=== PATIENT | female | born 1960 | race Caucasian/White ===

== ENCOUNTER → 2016-08-15 | Outpatient (CLI) | payer BC ==
[~2016-08-15] MED LIST: ADVIN25/60 INH; ASPI81TA28 PO; ATOR-26 PO; CETI10TA84 PO; CHOL20007 PO; COEN1CAP28 PO; EPP3/2 IM; GABA1CAP PO; INSDGI SC; INSU100I2 SC; IPRA1AER2 INH; LISI-461 PO; METF-384 PO; MOME50SP5; OMEG10007 PO; PANT40TA PO; SERT-234 PO; XNX25 PO; ZOLP10TA PO
--- NOTE | 2016-08-15 14:39 | DIAGNOSTIC IMAGING REPORT ---
CHEST 2 VIEWS ROUTINE CLINICAL HISTORY: ASTHMA EXACERBATION/SOB COMPARISON STUDY: No previous studies for comparison. FINDINGS: The bones soft tissues and hemidiaphragms are normal. The cardiomediastinal silhouette is normal. The lungs are clear. The pulmonary vasculature is normal. IMPRESSION: Negative chest. Electronically signed by: Kd Sawyer M.D. 08/15/2016 2:37 PM Dictated Date/Time: 08/15/2016 2:37 PM
== END | disposition home or self-care (01) ==
LOC: C.RADPV 14:16
PROVIDERS: ATTEND Nurse Practitioner
DX: J45.901 Unspecified asthma with (acute) exacerbation (principal); R06.02 Shortness of breath

== ENCOUNTER → 2016-09-02 | Outpatient (CLI) | payer BC ==
[~2016-09-02] MED LIST changes: +GADAVIST IV PRN
--- NOTE | 2016-09-02 11:00 | DIAGNOSTIC IMAGING REPORT ---
MRI OF THE BRAIN COMBO CLINICAL HISTORY: Headache. Forgetfulness. COMPARISON STUDY: MRI of the brain dated 10/30/2010. TECHNIQUE: MRI of the brain was performed utilizing various T1 and T2-weighted sequences in the axial, sagittal, and coronal planes. Contrast-enhanced sequences were acquired following the administration of 7 cc of Gadavist. The examination is significantly degraded by open MRI technique. FINDINGS: Brain parenchyma: There is mild subcortical and periventricular microangiopathic disease. There is no hemorrhage or mass effect. There is no restricted diffusion to suggest acute ischemia. No enhancing mass lesion is identified on the postcontrast images. Mojica-white matter differentiation is preserved. No extra-axial fluid collection is seen. The cerebellar tonsils are normal in configuration. Ventricles, sulci, and cisterns: Normal in configuration. Pituitary and sella: Unremarkable. Intracranial vasculature: Normal flow voids are maintained at the skull base. Orbits: The bony orbits are grossly intact. Orbital contents are normal in appearance. Sinuses and mastoids: There is evidence of previous paranasal sinus surgery. There is moderate mucosal thickening in the left maxillary antrum. Mild mucosal thickening is seen within the right maxillary antrum and the sphenoid sinuses. The mastoid air cells are clear. Calvarium: Unremarkable. Cervical cord: Partially visualized cervical spinal cord is normal in morphology and signal intensity. IMPRESSION: No acute intracranial abnormality. Electronically signed by: Arjun Walker M.D. 09/02/2016 10:58 AM Dictated Date/Time: 09/02/2016 10:55 AM
== END | disposition home or self-care (01) ==
LOC: C.OPENMRI 09:47
PROVIDERS: ATTEND Psychiatry & Neurology Neurology
DX: Z86.73 Personal history of transient ischemic attack (TIA), and cerebral infarction without residual deficits (principal)

== ENCOUNTER 2017-05-05 09:27 | Emergency (ER) | payer BC ==
[~2017-05-05] VITALS: Ht 162.6 cm; Wt 79.7 kg
[~2017-05-05 09:27] MED LIST changes: -GADAVIST IV PRN
[2017-05-05 09:34] VITALS: TEMP 36.8; Ht 162.6 cm; Wt 79.7 kg
[2017-05-05] MEDS ORDERED: MOME6000 (10:08)
[2017-05-05] MEDS ORDERED: DEXAMETHASONE SOD INJ 4 MG/ML 5 ML VIAL IM STA (11:44)
[2017-05-05] MEDS ORDERED: KETOROLAC TROMETHAMINE 60 MG/2 ML VIAL IM STA (11:44)
[2017-05-05] MEDS ORDERED: MoRPHine SULFATE 10 MG/ML CARP/VIAL IM STA (11:44)
[2017-05-05] MEDS ORDERED: DEXAMETHASONE SOD INJ 10 MG/ML VIAL IM STA ×2 (11:50→11:58)
[2017-05-05] MEDS ORDERED: ONDANSETRON 4MG OD TAB PO ONE (12:15)
--- NOTE | 2017-05-05 12:32 | DIAGNOSTIC IMAGING REPORT ---
C-SPINE ROUTINE 4 OR 5 VIEWS CLINICAL HISTORY: RIGHT CERVICAL RADICULOPATHY COMPARISON STUDY: February 2008 FINDINGS: No fractures or traumatic subluxations are visualized on conventional radiographic imaging. There are degenerative changes most pronounced at the C4-5 level. There is minor bilateral foraminal narrowing due to uncinate spurring. No destructive lesions are visualized IMPRESSION: 1. No acute fractures or traumatic subluxations 2. Degenerative changes most pronounced at the C4-5 level. Electronically signed by: Simeon Anand M.D. 05/05/2017 12:31 PM Dictated Date/Time: 05/05/2017 12:29 PM
[2017-05-05 12:37] VITALS: BP 166/88; PULSE 94; O2SAT 96
[2017-05-05] MEDS ORDERED: OXYC1TAB3 PO (13:27)
[2017-05-05] MEDS ORDERED: METH4PAK PO (13:27)
--- NOTE | 2017-05-05 13:28 | EMERGENCY ROOM VISIT NOTE ---
ED Visit Note First contact with patient: 10:43 CHIEF COMPLAINT: Worsening neck and right shoulder pain x 2-3 weeks. HPI : Patient is a [id number] 57-year-old white female who presents the emergency department for evaluation of right neck and shoulder pain. Patient has had pain similar to this previously, she had been evaluated for it some time ago, noting that she had an MRI many years ago, and had been in physical therapy at one point but only went for a few sessions. She states that the pain is generally manageable, she states is usually alleviated with aoan-vdx-mirwzcp medications area last couple of days, however the pain has worsened. She notes a burning pain in the musculature of the right side of her neck that radiates down into the top of the right shoulder, and right shoulder blade. Pain is worse with movement and palpation. She states the pain does not radiate significantly down the arm, she denies any elbow pain, no numbness, tingling or weakness into her hand or fingers. She had left over Vicodin, which she took which helped initially, but subsequently has not given her any relief. She has had pain like this before and reports that prednisone has helped. She states that she has not been able to sleep for the last couple of days due to her pain. She is not aware of any injury to the area. No recent heavy exertion or unusual activity that he knows that may have started the pain. She denies any anterior chest pain, palpitations or shortness of breath. REVIEW OF SYSTEMS: Review of systems as per HPI. All other systems reviewed were negative. 10 systems reviewed. PMH: Electronic medical records are reviewed and summarized as above/below. See Problem List. SOCIAL HISTORY: Patient lives at home with her family. Employed. Smoker. PHYSICAL EXAM: Vital Signs: Reviewed Nurse's notes. MENTAL STATUS: Patient is an uncomfortable, slightly anxious-appearing 57-year- old white female who is awake and alert and didn't well distress due to her neck pain. HEENT: Normocephalic, atraumatic. Pupils equal, round, reactive to light and accommodation. EOMs intact without nystagmus. Sclera are anicteric. Tympanic membranes intact, with normal landmarks. External canals are clear. Oral and nasopharynx are clear. Mucous membranes are moist. C-SPINE: There is no tenderness or step-off deformity over the spinous processes of the cervical or upper thoracic spine. She has marked reproducible right paraspinous muscle tenderness, extending into the right trapezius and right rhomboid region. She does have a few localized spasms noted. She has full C-spine range of motion. MUSCULOSKELETAL: Examination of the right shoulder does not note any obvious deformity, no swelling, erythema, increased warmth or induration. The shoulder is relatively nontender to palpation. There is no discomfort over the acromioclavicular joint, no pain over the proximal biceps tendon anteriorly or over the rotator cuff insertion. She has full internal and external range of motion of the shoulder, can be abducted to 90, and forward flex to 100 and ED degrees without shoulder pain, does report neck pain with shoulder range of motion. The bilateral upper extremities are neurovascularly intact. Upper extremity DTRs are equal and symmetrical bilaterally. Paraspinous muscle tenderness, no midline tenderness over spinous processes, no muscle spasm. CHEST: Non-tender, symmetrical, no retractions. LUNGS: Clear to auscultation. NEUROLOGICAL: Alert, oriented, and cooperative. Cranial nerves, sensation and strength grossly intact. Pupils round, equal, and react to light, EOMs are full. EMERGENCY DEPARTMENT COURSE: The patient was seen and assessed as above. Her old records were reviewed. She was medicated with Zofran 4 mg ODT, morphine 10 mg IM, Decadron 10 mg IM and Toradol 60 mg IM. Cervical spine x-rays were obtained, and noted moderate degenerative changes, most pronounced at the C4-C5 level. The patient has had some neck discomfort for some time. She has an exacerbation of her symptoms in the last few days without lack of trauma. She does not have any gross neurologic deficits on exam. She does not have any findings that are indicative of acute MRI at this time. She was educated on conservative care. She will be discharged home on a Medrol Dosepak and was given oxycodone to use for pain. She will need to follow up with her primary care provider for further care and management, as she may require further workup including MRI, physical therapy or pain management referral. Her pain does really seem to the originating from the cervical spine, and does not appear consistent with a shoulder pathology, although this was entertained. The patient rated her discomfort a 2/10 at discharge, family members were driving. Medication reconciliation: I attest that I have personally reviewed the patient' s current medication list. Patient was reviewed in the [facility] Prescription Drug Monitoring Program, and there were no red flags noted. Blood pressure screening: Patient was found to have a slightly elevated blood pressure due to circumstances. I do not believe that the patient requires hypertension monitoring. C-SPINE ROUTINE 4 OR 5 VIEWS CLINICAL HISTORY: RIGHT CERVICAL RADICULOPATHY COMPARISON STUDY: February 2008 FINDINGS: No fractures or traumatic subluxations are visualized on conventional radiographic imaging. There are degenerative changes most pronounced at the C4-5 level. There is minor bilateral foraminal narrowing due to uncinate spurring. No destructive lesions are visualized IMPRESSION: 1. No acute fractures or traumatic subluxations 2. Degenerative changes most pronounced at the C4-5 level. Problem List Medical Problems: (1) Anxiety Disorder, Unspecified Status: Chronic (2) Asthma, Unspecified Status: Chronic (3) Chronic Obstructive Pulmonary Disease, Unspecified Status: Chronic (4) Diab Deidre Wo Compl, Type Ii Or Unspec Type, Not Uncntrld Status: Chronic (5) Esophageal Reflux Status: Chronic (6) Hyperlipidemia Nec/Nos Status: Chronic (7) Hypertension Nos Status: Chronic Surgical Problems: (1) History of hysterectomy Status: Resolved (2) History of sinus surgery Status: Resolved Current/Historical Medications Scheduled Aspirin (Aspirin Ec), 81 MG PO HS Atorvastatin (Lipitor), 80 MG PO HS Cholecalciferol (Vitamin D3), 1 TAB PO QAM Coenzyme Q10 (Ubidecarenone) (Co Q10), 100 MG PO QAM Epinephrine (Epipen), 0.3 MG IM UD Fluticasone Prop/Salmeterol (Advair Diskus 250/50 60 Dose), 1 PUFF INH BID Gabapentin (Neurontin), 1 CAP PO UD Insulin Glargine (Lantus), 78 UNITS SC HS Ipratropium-Albuterol (Combivent Respimat), 1 PUFFS INH QID Lisinopril (Lisinopril), 10 MG PO QPM Metformin Hcl (Glucophage), 1,000 MG PO BID Methylprednisolone (Medrol Dosepak), 0 PO DAILY Mometasone Furoate (Nasal) (Mometasone Furoate), 2 SPRAYS NA QAM Pantoprazole (Protonix), 40 MG PO QAM Sertraline (Zoloft), 1 TAB PO QAM Scheduled PRN Alprazolam (Alprazolam), 0.25 MG PO BID PRN for PRN Oxycodone Immediate Rel Tab (Roxicodone Ir), 1-2 TAB PO Q4H PRN for Severe Pain Zolpidem Tartrate (Ambien), 10 MG PO HS PRN for PRN Miscellaneous Medications Insulin Lispro (Human) (Humalog Kwikpen), 20 UNITS SC Allergies Coded Allergies: Iodinated Diagnostic Agents (Verified Allergy, Unknown, HIVES, 05/05/17) Venlafaxine (Unverified Adverse Reaction, Intermediate, Anxious/"shaking" , 05/05/17) per PCP records Vital Signs Date Time Temp Pulse Resp B/P (MAP) Pulse Ox O2 Delivery O2 Flow Rate FiO2 05/05/17 12:37 94 18 166/88 96 Room Air 05/05/17 09:34 36.8 106 17 168/87 96 Room Air Medications Administered Medications (Trade) Dose Ordered Sig/Bertram Route Start Time Stop Time Status Last Admin Dose Admin Ketorolac Tromethamine (Toradol Inj) 60 mg NOW STAT IM 05/05/17 11:44 05/05/17 11:46 DC 05/05/17 11:57 60 MG Morphine Sulfate (MoRPHine SULFATE INJ) 10 mg NOW STAT IM 05/05/17 11:44 05/05/17 11:46 DC 05/05/17 11:58 10 MG Dexamethasone Sodium Phosphate (Decadron Inj) 10 mg NOW STAT IM 05/05/17 11:58 05/05/17 11:59 DC 05/05/17 12:55 10 MG Ondansetron HCl (Zofran Odt) 4 mg ONE ONCE PO 05/05/17 12:15 05/05/17 12:16 DC 05/05/17 12:26 4 MG Departure Information Impression Primary Impression: Right cervical radiculopathy Prescriptions Oxycodone Immediate Rel Tab (ROXICODONE IR) 5 Mg Tab 1-2 TAB PO Q4H Y for Severe Pain, #20 TAB For Initial Treatment Prov: Di Arias PA 05/05/17 Methylprednisolone (MEDROL DOSEPAK) 4 Mg Sandeep 0 PO DAILY, #1 PKT Once daily as directed. Prov: Di Arias PA 05/05/17 Referrals Corrine Patel C.R.N.P (PCP) Patient Instructions My [facility] Additional Instructions DO NOT drive, drink alcohol, operate machinery, or perform dangerous activities today. You were given medications in the ER that can affect your ability to safely function or operate a vehicle. Medrol Dosepak: Once daily until the prescription is finished. It is best to take this earlier in the day as some patients note occasional difficulty falling asleep when taken in the late evening. Oxycodone (OxyIR) 5mg: Take 1-2 pills every four hours for breakthrough pain. Avoid alcohol, operating machinery or dangerous equipment, working on ladders or roofs, DRIVING, or situations where being under the influence may be dangerous. It is recommended to use an lowg-jku-nopveik stool softener such as Colace, 100mg twice daily while taking this medication to avoid constipation. Ibuprofen(Motrin, Advil) may be used for fever or pain. Use 600mg every six hours as needed. Take with food. Avoid using more than 2400mg in a 24 hour period. Do not use 2400mg per day for more than three consecutive days without physician direction. Prolonged inappropriate use can lead to stomach upset or ulcers. This medication can be taken if you need to drive, work, or perform activities which may be dangerous when taking narcotic pain medication. (AND/OR) Acetaminophen(Tylenol) may be used for fever or pain. Use 1000mg every six hours as needed. Avoid using more than 3000mg in a 24 hour period. This medication can be taken if you need to drive, work, or perform activities which may be dangerous when taking narcotic pain medication. Rest and avoid heavy lifting until your symptoms resolve and then gradually return to full activity. A good rule of thumb is if it hurts your back to perform a certain activity, then it should be avoided until you are healthy again. A heating pad, warm compresses, or a hot shower may help with tight muscles and can be done several times a day as needed. Continue current medications. Return to the ER immediately for any numbness, tingling, severe pain, loss of control of your bowels or bladder, inability to walk, or as needed. Follow up with your primary care physician within 3-5 days for a recheck of your current condition.
== END 2017-05-05 13:35 | disposition home or self-care (01) ==
LOC: C.EDB 09:28
DX: M54.12 Radiculopathy, cervical region (principal); F17.200 Nicotine dependence, unspecified, uncomplicated; F41.9 Anxiety disorder, unspecified; J44.9 Chronic obstructive pulmonary disease, unspecified; E11.9 Type 2 diabetes mellitus without complications; K21.9 Gastro-esophageal reflux disease without esophagitis; E78.5 Hyperlipidemia, unspecified; I10 Essential (primary) hypertension; Z79.82 Long term (current) use of aspirin; Z79.51 Long term (current) use of inhaled steroids; Z79.4 Long term (current) use of insulin; Z90.710 Acquired absence of both cervix and uterus

== ENCOUNTER → 2017-06-02 | Outpatient (CLI) | payer OTHER ==
[~2017-06-02] MED LIST changes: -CETI10TA84 PO; -MOME50SP5; +MOME6000; -OMEG10007 PO; +OXYC1TAB3 PO
--- NOTE | 2017-06-02 14:51 | DIAGNOSTIC IMAGING REPORT ---
MRI OF THE CERVICAL SPINE WITHOUT CONTRAST CLINICAL HISTORY: Neck pain with left-sided radiculopathy. COMPARISON: Cervical spine radiographs May 05, 2017. TECHNIQUE: Utilizing a 1.5 [place] magnet and dedicated coil, multiplanar, multiecho imaging of the cervical spine was performed without IV contrast. FINDINGS: There is slight reversal of the normal cervical lordosis. Vertebral body heights are maintained. No suspicious marrow replacement is present. Study is mildly compromised by motion artifact. Visualized portions of the posterior fossa are unremarkable. Cervical cord signal and caliber are normal. There is no intracanalicular mass or fluid collection. Paravertebral soft tissues are unremarkable. C2-C3: The central canal and the neural foramen are patent. C3-C4: The central canal is patent. There is moderate to severe narrowing of the right neural foramen due to facet arthrosis and uncovertebral hypertrophy. Left neural foramen is patent. C4-C5: A right paracentral disc protrusion is noted. There is moderate narrowing of the right aspect of the canal. There is severe narrowing of the right neural foramen. There is mild narrowing of the left neural foramen. C5-C6: Right paracentral disc protrusion is noted. There is mild narrowing of the right aspect of the canal. There is mild narrowing of both neural foramen. C6-C7: A left paracentral/left foraminal disc protrusion is noted. This results in mild narrowing of the left aspect of the canal. There is mild right and mild to moderate left neural foraminal stenosis. C7-T1: Central canal and neural foramen are patent. IMPRESSION: 1. Moderate multilevel degenerative disc disease with multiple disc protrusions, as described above, at the C4-C5, C5-C6 and C6-C7 levels. Moderate central canal narrowing at C4-C5 with moderate to severe multilevel neural foraminal stenosis, as detail above. 2. Normal cervical cord signal and caliber. Electronically signed by: Guilherme Garsia M.D. 06/02/2017 2:50 PM Dictated Date/Time: 06/02/2017 2:38 PM
== END | disposition home or self-care (01) ==
LOC: C.MRI 13:29
PROVIDERS: ATTEND Nurse Practitioner
DX: M54.2 Cervicalgia (principal); M79.2 Neuralgia and neuritis, unspecified; R20.8 Other disturbances of skin sensation

== ENCOUNTER → 2017-07-25 | Outpatient (CLI) | payer OTHER ==
[~2017-07-25] MED LIST changes: +GABA100C13 PO; -GABA1CAP PO
--- NOTE | 2017-07-25 10:29 | DIAGNOSTIC IMAGING REPORT ---
L FINGER(S) MIN 2 VIEWS ROUTINE CLINICAL HISTORY: PAIN IN THUMB JOINT WITH MOVEMENT pain COMPARISON: None. DISCUSSION: Minimal degenerative change of the first carpometacarpal joint as well as metacarpal phalangeal and interphalangeal joint. No acute bony abnormality. No significant soft tissue edema. There is no evidence for soft tissue swelling. IMPRESSION: Minimal degenerative change of the joints as discussed. No acute process. The above report was generated using voice recognition software. It may contain grammatical, syntax or spelling errors. Electronically signed by: Kd Sawyer M.D. 07/25/2017 10:28 AM Dictated Date/Time: 07/25/2017 10:27 AM
== END | disposition home or self-care (01) ==
LOC: C.RADPV 10:03
PROVIDERS: ATTEND Nurse Practitioner
DX: M19.042 Primary osteoarthritis, left hand (principal)